=== PATIENT | male | born 1995 | race Caucasian/White ===

== ENCOUNTER 2018-11-11 08:02 | Emergency (ER) | payer SELFPAY ==
[2018-11-11] MEDS ORDERED: KETOROLAC TROMETHAMINE INJ/PF 30 MG/1 ML SDV IV ONE (09:08)
--- NOTE | 2018-11-11 09:10 | ER Document Report ---
ED Cardiac - General Chief Complaint: Chest Pain Stated Complaint: CHEST PAIN Time Seen by Provider: 11/11/18 08:46 Mode of Arrival: Ambulatory Information source: Patient - HPI Patient complains to provider of: Chest pain Notes: Patient here with complaints of chest pain. He states the pain is in the lower midportion of his chest. The pain is been constant for the last 3 days. Pain seems to be worse when he takes a deep breath. No shortness of breath. He denies any injury. He denies any numbness, tingling, weakness. No abdominal pain. No nausea, vomiting, diarrhea. He occasionally vapes. He denies drug use. Drinks alcohol on the weekends. He denies any fevers. No cough. He denies history of high cholesterol, diabetes, CAD, family history of CAD. He states that he has been told his blood pressures been high in the past, but is n ot on antihypertensive medications. He denies any headache, blurred vision. Pain has been constant, moderate, worse with deep breaths. It is not exertional. Patient denies any recent long trips or surgeries, leg pain or leg swelling, cancer, history of DVT or PE. No other complaints at this time. - Related Data Allergies/Adverse Reactions: No Known Allergies Allergy (Verified 11/11/18 08:06) Past Medical History - Social History Smoking Status: Current Every Day Smoker Family History: Reviewed & Not Pertinent Patient has suicidal ideation: No Patient has homicidal ideation: No Renal/ Medical History: Denies: Hx Peritoneal Dialysis Review of Systems - Review of Systems -: Yes All other systems reviewed and negative Physical Exam - Vital signs Vitals: Pulse Ox 99 11/11/18 08:03 - Notes Notes: GENERAL: alert, cooperative, nontoxic, no distress. HEAD: normocephalic, atraumatic EYES: conjunctiva pink without discharge, no external redness or swelling. EARS: no external swelling, no external redness NOSE: atraumatic, no external swelling MOUTH/THROAT: mucous membranes moist and pink, posterior pharynx without erythema, swelling, exudate. No trismus or drooling. NECK: soft, supple, full range of motion, no meningismus. CHEST: no distress, lungs clear and equal throughout. No wheezing, rales, rhonchi. CARDIAC: regular rate and rhythm, no murmur, normal capillary refill, normal pulses. No peripheral edema noted. ABDOMEN: Soft, nontender. BACK: full range of motion, no CVA tenderness. EXTREMITIES: full range of motion of all extremities. No redness, no swelling. NEURO: alert and oriented x 3, no focal deficits, full range of motion of all extremities. PYSCH: appropriate mood, affect. Patient is cooperative. SKIN: pink, warm, dry, no rash. Course - Re-evaluation Re-evalutation: 11/11/18 09:08 Patient noted to have a vagal episode while getting his IV started and blood drawn. Slightly diaphoretic which improved after we laid his head down and he rested. Patient is PERC rule negative, Wells criteria negative for pulmonary embolism. 11/11/18 11:13 Patient is resting comfortably at this time. Heart score is 1. EKG is negative. Troponin is negative. Patient has had constant pain for the last 3 days. Pain seems very atypical for ACS. Chest x-ray is unremarkable. Went to update the patient, he states that he continues to have pain. Due to the pleuritic nature of his pain, have ordered a d-dimer. Currently awaiting the d- dimer results at this time. Patient is noted to have a slightly elevated blood sugar of 200, no signs of DKA. He does not have a history of diabetes is that he is aware of. I discussed this with him and the need for having this for a evaluated. We will continue to monitor at this time. 11/11/18 12:17 Patient nontoxic-appearing with stable vitals. Patient here with complaints of chest pain for the last 3 days. Is been constant. Is worse with deep breath. No specific injury. 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 Patient has a heart score of 1. EKG is normal. Troponin is negative. PERC rule and Wells criteria negative. D-dimer negative. EKG unremarkable for any significant changes or abnormalities. Chest x-ray is negative. Pain is very atypical for ACS. At this point patient will be discharged home with prescription for Naprosyn with a few days off of work for rest. He will be referred to cardiology and primary care. He is noted to have a slightly elevated blood sugar of 200 which I did discuss with him. His blood pressure is also elevated. He will need to get established with primary care to have this reevaluated and monitored. Follow-up sooner if he develops any worsening pain, high fever, difficulty breathing, persistent vomiting, or if he has any further concerns. The patient's emergency department workup and current diagnosis were explained to the patient and or family. Follow-up instructions were provided. Medications if prescribed were discussed. Instructions for when to return to the emergency department including specific worrisome symptoms were discussed with the patient and/or family. - Vital Signs Vital signs: Temp Pulse Resp BP Pulse Ox 99 F 80 19 141/93 H 98 11/11/18 08:07 11/11/18 09:42 11/11/18 11:01 11/11/18 11:01 11/11/18 11:01 - Laboratory Result Diagrams: 11/11/18 08:48 11/11/18 08:48 Laboratory results interpreted by me: 11/11/18 11/11/18 08:48 08:48 Monocytes % (Manual) 2 L Metamyelocytes % 2 H Glucose 214 H ALT 86 H - Diagnostic Test Radiology reviewed: Image reviewed, Reports reviewed - Negative chest x-ray - EKG Interpretation by Me EKG shows normal: Sinus rhythm, [place], Intervals, QRS Complexes, ST-T Waves Rate: Normal When compared to previous EKG there are: Other - Rate is 72, no ST elevation or depression, no STEMI. Discharge - Discharge Clinical Impression: Hyperglycemia Chest pain Qualifiers: Chest pain type: unspecified Qualified Code(s): R07.9 - Chest pain, unspecified Condition: Stable Disposition: HOME, SELF-CARE Instructions: Chest Pain of Unclear Cause ([facility]) Additional Instructions: Take medication as prescribed. Follow-up with primary care and cardiology at the next available appointment. Follow-up sooner for worsening pain, fever, difficulty breathing or swelling, persistent vomiting, or for any further concerns. Prescriptions: Naproxen [Naprosyn] 500 mg PO BID #20 tablet Forms: Elevated Blood Pressure, Smoking Cessation Education, Return to Work Referrals: [facility] [Provider Group] - Follow up as needed
[2018-11-11 09:57] LABS: HEMATOCRIT 42.2 % (37.9-51.0); HEMOGLOBIN 14.9 g/dL (13.5-17.0); MEAN CORPUSCULAR HEMOGLOBIN 28.4 pg (27.0-33.4); MEAN CORPUSCULAR HGB CONC 35.2 g/dL (32.0-36.0); MEAN CORPUSCULAR VOLUME 81 fl (80-97); PLATELET COUNT 285 10^3/uL (150-450); RED BLOOD COUNT 5.23 10^6/uL (4.35-5.55); RED CELL DISTRIBUTION WIDTH 13.1 % (11.5-14.0); WHITE BLOOD COUNT 9.9 10^3/uL (4.0-10.5)
[2018-11-11 10:04] LABS: ALANINE AMINOTRANSFERASE 86 U/L (21-72); ALBUMIN 4.7 g/dL (3.5-5.0); ALKALINE PHOSPHATASE 52 U/L (38-126); ANION GAP 14 (5-19); ASPARTATE AMINO TRANSFERASE 50 U/L (17-59); BILIRUBIN,DIRECT 0.4 mg/dL (0.0-0.4); BILIRUBIN,TOTAL 0.6 mg/dL (0.2-1.3); BLOOD UREA NITROGEN 16 mg/dL (7-20); CALCIUM 9.5 mg/dL (8.4-10.2); CARBON DIOXIDE 25 mmol/L (22-30); CHLORIDE 101 mmol/L (98-107); GLUCOSE 214 mg/dL (75-110); POTASSIUM 4.7 mmol/L (3.6-5.0); SODIUM 139.6 mmol/L (137-145); TOTAL PROTEIN 7.5 g/dL (6.3-8.2)
[2018-11-11 10:23] LABS: ABSOLUTE LYMPHOCYTES# (MANUAL) 3.6 10^3/uL (0.5-4.7); ABSOLUTE MONOCYTES # (MANUAL) 0.2 10^3/uL (0.1-1.4); ABSOLUTE NEUTROPHILS# (MANUAL) 5.9 10^3/uL (1.7-8.2); BASOPHILS % (MANUAL) 0 % (0-2); EOSINOPHILS % (MANUAL) 2 % (0-6); LYMPHOCYTES % (MANUAL) 36 % (13-45); METAMYELOCYTES % (MANUAL) 2 % (0); MONOCYTES % (MANUAL) 2 % (3-13); SEGMENTED NEUTROPHILS % (MAN) 58 % (42-78); TOTAL CELLS COUNTED 100
[2018-11-11 10:24] LABS: PLATELET COMMENT ADEQUATE; PLATELET GIANT PRESENT; PLATELET LARGE PRESENT
--- NOTE | 2018-11-11 10:54 | RADIOLOGY REPORT (SQ) ---
EXAM DESCRIPTION: CHEST SINGLE VIEW COMPLETED DATE/TIME: 11/11/2018 10:40 am REASON FOR STUDY: CP COMPARISON: None. EXAM PARAMETERS: NUMBER OF VIEWS: One view. TECHNIQUE: Single frontal radiographic view of the chest acquired. RADIATION DOSE: NA LIMITATIONS: None. FINDINGS: LUNGS AND PLEURA: No opacities, masses or pneumothorax. No pleural effusion. MEDIASTINUM AND HILAR STRUCTURES: No masses. Contour normal. HEART AND VASCULAR STRUCTURES: Heart normal in size. Normal vasculature. BONES: No acute findings. HARDWARE: None in the chest. OTHER: No other significant finding. IMPRESSION: NO ACUTE RADIOGRAPHIC FINDING IN THE CHEST. TECHNICAL DOCUMENTATION: JOB ID: [id number] [employer]- All Rights Reserved Reading location - IP/workstation name: [email or web address]
[2018-11-11 11:44] LABS: URINE AMPHETAMINES SCREEN NEGATIVE; URINE BARBITURATES SCREEN NEGATIVE; URINE BENZODIAZEPINES SCREEN NEGATIVE; URINE COCAINE SCREEN NEGATIVE; URINE MARIJUANA (THC) SCREEN NEGATIVE; URINE METHADONE SCREEN NEGATIVE; URINE PHENCYCLIDINE SCREEN NEGATIVE
[2018-11-11 12:49] VITALS: BP 144/88
--- NOTE | 2018-11-11 22:46 | EKG REPORT ---
SEVERITY:- NORMAL ECG - SINUS RHYTHM : Confirmed by: Jacklyn Parra MD 11-Nov-2018 22:44:57
== END 2018-11-11 12:47 | disposition home or self-care (01) ==
LOC: ER 08:02
DX: R07.9 Chest pain, unspecified (principal); R73.9 Hyperglycemia, unspecified; F17.200 Nicotine dependence, unspecified, uncomplicated
CPT/HCPCS: 93005; 99284; 96374; 36415; 85025; 80053; 84484; 80307; 85379; 71045; 93010; J1885

== ENCOUNTER 2018-11-12 19:31 | Emergency (ER) | payer SELFPAY ==
--- NOTE | 2018-11-12 19:58 | ER Document Report ---
ED Medical Screen (RME) - General Chief Complaint: Chest Pain Stated Complaint: CHEST PAIN Time Seen by Provider: 11/12/18 19:48 Mode of Arrival: Ambulatory Information source: Patient Notes: Patient is a 23-year-old male presenting to the emergency department with chief complaint of chest pain and elevated blood sugar. Patient was seen here in this emergency department for the same complaint yesterday. He reports that his pain that has been ongoing for 4 days now to the middle of his chest has continued. He reports the pain is worse with deep breaths. He denies any other association with foods etc. Patient denies any nausea or vomiting. He also reports that incidentally they found a blood glucose yesterday of 200 which has caused him much concern. He states he has been checking his blood sugar today and found it to be 254 after eating a meal. Patient is very anxious and concerned. EKG was ordered by nurse and is found to be unchanged from yesterday's EKG. Normal rate, rhythm and no ST segment elevations or depressions. A [id number] glucose was also done and was found to be 198. I will not place any further orders as patient had a negative CBC, CMP, d-dimer, chest x-ray done yesterday. Will allow another provider in the back to do a more thorough evaluation on patient prior to any additional orders being placed. I have greeted and performed a rapid initial assessment of this patient. A comprehensive ED assessment and evaluation of the patient, analysis of test results and completion of the medical decision making process will be conducted by additional ED providers. Dictation of this chart was performed using voice recognition software; therefore, there may be some unintended grammatical errors. TRAVEL OUTSIDE OF THE [place] IN LAST 30 DAYS: No - Related Data Allergies/Adverse Reactions: No Known Allergies Allergy (Verified 11/11/18 08:06) Past Medical History Renal/ Medical History: Denies: Hx Peritoneal Dialysis
[2018-11-12 21:06] LABS: ANION GAP 14 (5-19); BLOOD UREA NITROGEN 11 mg/dL (7-20); CALCIUM 9.4 mg/dL (8.4-10.2); CARBON DIOXIDE 25 mmol/L (22-30); CHLORIDE 102 mmol/L (98-107); GLUCOSE 183 mg/dL (75-110); POTASSIUM 4.1 mmol/L (3.6-5.0); SODIUM 140.7 mmol/L (137-145)
[2018-11-12 22:00] VITALS: BP 158/118
[2018-11-12] MEDS ORDERED: METFORMIN HCL 500 MG TABLET PO ONE (22:07)
--- NOTE | 2018-11-12 22:13 | ER Document Report ---
ED General - General Chief Complaint: Chest Pain Stated Complaint: CHEST PAIN Time Seen by Provider: 11/12/18 19:48 Mode of Arrival: Ambulatory Notes: Patient is a 23-year-old male without chronic medical problems by his report although does not follow with a primary care physician who presents with ongoing intermittent chest discomfort. Describes it as an intermittent, stabbing, diffuse chest pain that he has had for the past 4 days, not new or different today. Is a mild discomfort. Nothing improves or worsens the discomfort. States the reason that he is come to the emergency department tonight is not actually due to chest discomfort but that he is concerned about ongoing high blood sugars which she has been checking at home and that they have been as high as 228. He also notes that he has had polyuria and polydipsia. Was seen yesterday for similar concerns, had a reassuring evaluation at that time. Does admit to dietary indiscretions, states he used to be much heavier but has continued to lose weight over the last several years. Does not have a primary care physician. TRAVEL OUTSIDE OF THE [place] IN LAST 30 DAYS: No - Related Data Allergies/Adverse Reactions: No Known Allergies Allergy (Verified 11/11/18 08:06) Past Medical History - General Information source: Patient - Social History Smoking Status: Never Smoker Frequency of alcohol use: Social Drug Abuse: None Lives with: Spouse/Significant other Family History: Reviewed & Not Pertinent Patient has suicidal ideation: No Patient has homicidal ideation: No Renal/ Medical History: Denies: Hx Peritoneal Dialysis Review of Systems - Review of Systems Notes: Constitutional: Negative for fever. HENT: Negative for sore throat. Eyes: Negative for visual changes. Cardiovascular: Positive for chest pain. Respiratory: Negative for shortness of breath. Gastrointestinal: Negative for abdominal pain, vomiting or diarrhea. Genitourinary: Negative for dysuria. Musculoskeletal: Negative for back pain. Skin: Negative for rash. Neurological: Negative for headaches, weakness or numbness. 10 point ROS negative except as marked above and in HPI. Physical Exam - Vital signs Vitals: Temp Pulse Resp BP Pulse Ox 98.4 F 84 16 177/102 H 100 11/12/18 19:42 11/12/18 19:42 11/12/18 19:42 11/12/18 19:42 11/12/18 19:42 Interpretation: Hypertensive Notes: PHYSICAL EXAMINATION: GENERAL: Well-appearing, well-nourished and in no acute distress. HEAD: Atraumatic, normocephalic. EYES: Pupils equal round and reactive to light, extraocular movements intact, sclera anicteric, conjunctiva are normal. ENT: nares patent, oropharynx clear without exudates. Moist mucous membranes. NECK: Normal range of motion, supple without lymphadenopathy LUNGS: Breath sounds clear to auscultation bilaterally and equal. No wheezes rales or rhonchi. HEART: Regular rate and rhythm without murmurs ABDOMEN: Soft, nontender, normoactive bowel sounds. No guarding, no rebound. No masses appreciated. EXTREMITIES: Normal range of motion, no pitting or edema. No cyanosis. NEUROLOGICAL: No focal neurological deficits. Moves all extremities spontaneously and on command. PSYCH: Normal mood, normal affect. SKIN: Warm, Dry, normal turgor, no rashes or lesions noted. Course - Re-evaluation Re-evalutation: 11/12/18 22:10 Presentation of chest pain in an otherwise well appearing patient. Low clinical suspicion for ACS given clinical history, exam, EKG without ST elevations or depressions, and negative initial troponin. HEART score less than or equal to 3. PE also seems unlikely given clinical history, absence of tachycardia or dyspnea. Patient is PERC criteria negative. Patient also had a negative d-dimer yesterday. CXR obtained yesterday without evidence of pneumothorax or pneumonia. No widened mediastinum. Patient's main concern today was actually not chest pain but that he is having ongoing high blood sugars. A1c is 7.8. I did inform the patient that this is consistent with a diagnosis of type 2 diabetes. I have started him on metformin and have advised dietary changes. At this time will discharge with return precautions and follow-up recommendations. Verbal discharge instructions given a the bedside and opportunity for questions given. Medication warnings reviewed. Patient is in agreement with this plan and has verbalized understanding of return precautions and the need for primary care follow-up in the next 24-72 hours. - Vital Signs Vital signs: Temp Pulse Resp BP Pulse Ox 98.4 F 84 16 158/118 H 100 11/12/18 19:42 11/12/18 19:42 11/12/18 21:45 11/12/18 21:59 11/12/18 21:45 - Laboratory Result Diagrams: 11/12/18 20:38 Laboratory results interpreted by me: 11/12/18 11/12/18 20:38 20:38 Glucose 183 H Hemoglobin A1c % 7.8 H - EKG Interpretation by Me Additional EKG results interpreted by me: 11/12/18 22:11 Sinus rhythm, rate 76. No ST elevations or depressions. QTC is 441. Discharge - Discharge Clinical Impression: Elevated blood pressure reading Chest pain Qualifiers: Chest pain type: unspecified Qualified Code(s): R07.9 - Chest pain, unspecified Diabetes Qualifiers: Diabetes mellitus type: type 2 Diabetes mellitus intermediate insulin use: without intermediate use Diabetes mellitus complication status: without complication Qualified Code(s): E11.9 - Type 2 diabetes mellitus without complications Condition: Good Disposition: HOME, SELF-CARE Additional Instructions: You need to followup urgently with your primary care doctor as your blood sugars were high today. Please take all of your medications exactly as directed. You should avoid foods that are high in carbohydrates and sugary foods. Losing weight will also help to better control your blood sugars. Please return to emergency department immediately if you develop weakness, persistent vomiting, confusion, or any other symptoms that are concerning to you. You were seen today for chest pain. The exact cause of your pain is unclear. However, based on your cardiac enzyme testing, as well as your chest x-ray from yesterday, and EKG it does not appear that it is from an immediately life- threatening cause at this time. Although your testing here is normal is criti nikki that you follow-up with your primary care physician for continued evaluation of this chest pain and possible stress testing. I recommended you see your physician within the next 24-48 hours to be evaluated for consideration of a stress test. Please return to emergency department immediately if you have worsening of your chest pain, shortness of breath, vomiting, become unable to exert yourself due to pain or difficulty breathing, you pass out, or have any pain that radiates into your arms, jaw, or back. Please also return if you have any additional symptoms that are concerning to you. Prescriptions: Hydrochlorothiazide [Hydrodiuril 25 mg Tablet] 25 mg PO QAM #30 tablet Metformin HCl [Glucophage 500 mg Tablet] 500 mg PO BID #60 tablet
--- NOTE | 2018-11-12 23:27 | EKG REPORT ---
SEVERITY:- NORMAL ECG - SINUS RHYTHM : Confirmed by: Jacklyn Parra MD 12-Nov-2018 23:26:15
== END 2018-11-12 22:20 | disposition home or self-care (01) ==
LOC: ER 19:31
DX: R07.9 Chest pain, unspecified (principal); R03.0 Elevated blood-pressure reading, without diagnosis of hypertension; E11.9 Type 2 diabetes mellitus without complications
CPT/HCPCS: 36415; 80048; 82962; 83036; 84484; 93005; 93010; 99285